=== PATIENT | female | born 1985 | race African-American/Black ===

== ENCOUNTER 2016-07-18 20:48 | Emergency (ER) | payer OTHER ==
[2016-07-19 00:15] VITALS: BP 146/94
== END 2016-07-19 00:15 | disposition home or self-care (01) ==
LOC: ED 20:48
DX: S63.92XA Sprain of unspecified part of left wrist and hand, initial encounter (principal); S60.511A Abrasion of right hand, initial encounter; S00.81XA Abrasion of other part of head, initial encounter; S80.812A Abrasion, left lower leg, initial encounter; S80.811A Abrasion, right lower leg, initial encounter; V09.9XXA Pedestrian injured in unspecified transport accident, initial encounter; Y93.89 Activity, other specified; Y99.8 Other external cause status; Y92.89 Other specified places as the place of occurrence of the external cause
CPT/HCPCS: 90715; A4570